=== PATIENT | male | born 1960 | race Caucasian/White ===

== ENCOUNTER 2017-04-19 21:55 | Inpatient (IN) | payer OTHER ==
--- NOTE | ~2017-04-19 | BMI ---
[facility] Nutrition Therapy DATE: 04/21/17 Patient: FRANCISCO TAYLORORTE Physician: AC Address: [address] [place] [address] ROAD Room/Bed: [address] [place] [address], Zip: [place] [address] Admit Date: 04/19/17 Date of : 56 Height: 5 7 Weight: 269 122.4 HIGH BMI NOTE: DX: 56 Y.O. MALE ADMITTED FOR APPENDICITIS ANTHROPOMETRICS: 5'7", WT: 269# (122 KG), BMI: 42 DIET: REGULAR INTERVENTION: 1. REGULAR DIET RECOMMENDATIONS: 1. RECOMMEND TO CHANGE CURRENT DIET ORDER TO CC+HH TO PROMOTE GRADUAL WEIGHT LOSS TOWARDS HEALTHY BMI (19.0-25.0) OR +/-10%IBW RD WILL F/U PER PROTOCOL Respectfully, ARLEEN KUMAR MS, RD, LD Food and Nutritional Services [facility] cc: client file
--- NOTE | ~2017-04-19 | OR ---
Unit #: [id number] #: [id number] Patient: FRANCISCO DWYER [id number] [address] [address] [id number] Mary MR#: [id number] NAME: FRANCISCO DWYER ROOM: 230 Date of Procedure: 04/20/2017 Admission Date: 04/19/2017 Surgeon: Francois Rizzo M.D. : 1960 Attending Physician: Francois Rizzo M.D. OPERATIVE REPORT PREOPERATIVE DIAGNOSIS Appendicitis. POSTOPERATIVE DIAGNOSIS Retrocecal appendicitis with localized perforation. PROCEDURES PERFORMED 1. Diagnostic laparoscopy. 2. Open appendectomy. TECHNICAL STENOGRAPHER None. ANESTHESIA General endotracheal anesthesia. ESTIMATED BLOOD LOSS 50 mL. IV FLUIDS 800 crystalloid. COMPLICATIONS None. INDICATIONS The patient is a 56-year-old gentleman with right lower quadrant abdominal pain. CT scan shows inflammation in the pericecal region. DESCRIPTION OF PROCEDURE The patient was taken to the operating theater and placed in supine position. General anesthesia was induced. The abdomen was prepped and draped. A 5 mm trocar was then placed at the umbilicus without difficulty. The abdomen was insufflated to 15 mmHg with CO2. Under direct vision, I placed a right lower quadrant 10 mm, left lower quadrant 5 mm. General inspection of the abdomen revealed purulent fluid throughout the pelvis. I mobilized the cecum and had difficulty identifying the appendix. This appeared to be retrocecal and going medial. I elected to proceed towards open operation. A right lower quadrant incision was then made. I then transected the rectus abdominis muscle to enter the abdominal cavity. I was able to Unit #: [id number] #: [id number] Patient: FRANCISCO DWYER break up the loculations. There was a localized perforation that I had seen laparoscopically with a fecalith. This was removed. I was able to identify the appendix and deliver the cecum into the wound. I fired a CHHAYA stapler across the base of the appendix as well as the mesoappendix. I then irrigated thoroughly with normal saline. Hemostasis was obtained. I placed the bowel back in anatomical position. I closed it with interrupted #1 Vicryl to both anterior and posterior layers. The galindo were placed in the skin. The patient tolerated the procedure well and sent to the recovery room in good condition. Dictated by... Sadia Weber/dick TD: 04/20/2017 10:32 JOB #: [id number] OPERATIVE REPORT Page 1 of 1 X Francois Rizzo MD X PROCEDURE OPERATIVE NOTE
--- NOTE | ~2017-04-19 | DS ---
Unit #: [id number] #: [id number] Patient: FRANCISCO DYWER [id number] [address] [address] [id number] MR#: [id number] NAME: FRANCISCO DWYER ROOM: 230 Age: 56 Sex: M Admission Date: 04/19/2017 : 1960 Discharge Date: 04/25/2017 Attending Physician: Francois Rizzo M.D. DISCHARGE SUMMARY DISCHARGE DIAGNOSIS Appendicitis with local perforation. PROCEDURE Open appendectomy. HOSPITAL COURSE The patient is a 56-year-old gentleman who presented with appendicitis. He underwent attempted laparoscopic but was found to have a retrocecal appendix with local perforation. His postop course was complicated by an ileus and persistent nausea. He was advanced toward a regular diet, which he tolerated. He defervesced and proceeded to a normal white count. DISPOSITION The patient will be discharged home. CONDITION UPON DISCHARGE Good condition. DISCHARGE DIET He is to follow a regular diet as tolerated. ACTIVITY Activity levels were discussed. FOLLOW-UP He is to follow up with Dr. Rizzo in 10 days. DISCHARGE MEDICATIONS His regular home medications and [place] 7.5 mg q.4 p.r.n. and Phenergan 25 mg p.o. q.4 p.r.n. Dictated by... Sadia Weber/luis angel TD: 04/26/2017 08:34 JOB #: [id number] Unit #: [id number] #: [id number] Patient: FRANCISCO DWYER DISCHARGE SUMMARY Page 1 of 1 X Francois Rizzo MD X DISCHARGE SUMMARY
--- NOTE | ~2017-04-19 | CO ---
Unit #: [id number] #: [id number] Patient: FRANCISCO DWYER [id number] [address] [place], [place] [address] [id number] MR#: [id number] NAME: FRANCISCO DWYER ROOM: 230 Age: 56 Sex: M Admission Date: 04/19/2017 : 1960 Attending Physician: Francois Rizzo M.D. Consultation Date: 04/20/2017 CONSULTATION REPORT BRIEF HISTORY The patient is a 56-year-old gentleman with less than 24 hour history of periumbilical and now right lower quadrant abdominal pain. No fevers. No chills. No emesis. No diarrhea. No history of similar type pain. No fevers. PAST MEDICAL HISTORY None. He has had no previous operations. MEDICATIONS 1. Flexeril. 2. Imitrex. 3. Tenormin. 4. Remeron. ALLERGIES There were no allergies. SOCIAL HISTORY No smoking. No alcohol. FAMILY HISTORY Negative for GI malignancy. REVIEW OF SYSTEMS No cardiopulmonary complaints at this time. Else, 10 systems reviewed and negative. PHYSICAL EXAMINATION GENERAL: He is awake, alert, and appropriate. VITAL SIGNS: Currently afebrile. HEENT: Unremarkable. NECK: Supple. No JVD. Trachea midline. LUNGS: Clear to auscultation. Bilateral breath sounds symmetric. CARDIOVASCULAR: Regular rate and rhythm. ABDOMEN: Soft. It is tender in the right lower quadrant. Point tenderness at McBurney point. No rebound. No masses palpable. No hernias. EXTREMITIES: No clubbing, cyanosis, or edema. DIAGNOSTIC STUDIES LABORATORY RESULTS: CT scan shows inflammation in the periappendix region. ASSESSMENT Unit #: [id number] #: [id number] Patient: FRANCISCO DWYER Appendicitis. PLAN Recommend laparoscopic appendectomy. Dictated by... Sadia Weber/dick TD: 04/20/2017 09:03 JOB #: [id number] CONSULTATION REPORT Page 1 of 1 X Olsofka,Francois N MD X CONSULTATION REPORT
[2017-04-20] MEDS ORDERED: TENORMIN50 MG PO (05:44)
[2017-04-20] MEDS ORDERED: REMERON30 MG PO (05:45)
[2017-04-20] MEDS ORDERED: MELATONIN3 MG PO (05:46)
[2017-04-20] MEDS ORDERED: FLEXERIL10 MG PO (05:46)
[2017-04-20] MEDS ORDERED: FIORICET 50-301 EACH PO (05:47)
[2017-04-20] MEDS ORDERED: IMITREX25 MG PO (05:47)
[2017-04-21 06:38] LABS: HEMATOCRIT 40.5 % (38.0-50.0); HEMOGLOBIN 13.7 gm/dL (13.0-16.0); MEAN CELL VOLUME 93.8 FL (83-96); MEAN CORPUSCULAR HEMOGLOBIN 31.7 PG (28-34); MEAN CORPUSCULAR HGB CONC 33.8 g/dL (30-36); MEAN PLATELET VOLUME 10.8 FL (6.5-11.5); RED BLOOD COUNT 4.32 X10e (3.90-5.60); RED CELL DISTRIBUTION WIDTH 13.2 % (11.0-15.5); WHITE BLOOD COUNT 9.8 X10e3 (4.0-10.5)
[2017-04-21 07:15] LABS: CALCIUM SERUM 8.8 mg/dL (8.4-10.2); GLOM FILT RATE Estimated 82.6 mL/min (>60); POTASSIUM 3.4 mmol/L (3.5-5.1)
[2017-04-23 07:33] LABS: HEMATOCRIT 39.1 % (38.0-50.0); MEAN CELL VOLUME 95.2 FL (83-96); MEAN CORPUSCULAR HEMOGLOBIN 31.7 PG (28-34); MEAN CORPUSCULAR HGB CONC 33.3 g/dL (30-36); RED BLOOD COUNT 4.11 X10e (3.90-5.60); RED CELL DISTRIBUTION WIDTH 13.1 % (11.0-15.5); WHITE BLOOD COUNT 5.8 X10e3 (4.0-10.5)
[2017-04-24 06:17] LABS: HEMATOCRIT 38.3 % (38.0-50.0); MEAN CORPUSCULAR HEMOGLOBIN 31.3 PG (28-34); MEAN PLATELET VOLUME 9.5 FL (6.5-11.5); RED BLOOD COUNT 4.16 X10e (3.90-5.60); WHITE BLOOD COUNT 5.7 X10e3 (4.0-10.5)
[2017-04-25 05:43] LABS: HEMATOCRIT 37.8 % (38.0-50.0); HEMOGLOBIN 12.9 gm/dL (13.0-16.0); MEAN CELL VOLUME 91.8 FL (83-96); MEAN CORPUSCULAR HEMOGLOBIN 31.3 PG (28-34); MEAN CORPUSCULAR HGB CONC 34.2 g/dL (30-36); MEAN PLATELET VOLUME 9.6 FL (6.5-11.5); RED BLOOD COUNT 4.11 X10e (3.90-5.60); WHITE BLOOD COUNT 6.4 X10e3 (4.0-10.5)
[2017-04-25 06:21] LABS: BUN/CREATININE RATIO 15.55; CALCIUM SERUM 8.5 mg/dL (8.4-10.2); CREATININE SERUM 0.9 mg/dL (0.6-1.4); GLOM FILT RATE Estimated 93.8 mL/min (>60); POTASSIUM 3.2 mmol/L (3.5-5.1)
[2017-04-25] MEDS ORDERED: NORCO 7.5-3251 EACH PO (07:55)
[2017-04-25] MEDS ORDERED: PHENERGAN25 M1 PO (07:55)
== END 2017-04-25 09:50 | disposition home or self-care (01) | DRG 339 ==
LOC: C2A 21:55
PROVIDERS: Surgery
PROC: 0DJD4ZZ Inspection of Lower Intestinal Tract, Percutaneous Endoscopic Approach (ICD-10-PCS; 2017-04-20)
PROC: 0DTJ0ZZ Resection of Appendix, Open Approach (ICD-10-PCS; principal; 2017-04-20 07:30)
PROC: 05HD33Z Insertion of Infusion Device into Right Cephalic Vein, Percutaneous Approach (ICD-10-PCS; 2017-04-24)
PROC: B54MZZA Ultrasonography of Right Upper Extremity Veins, Guidance (ICD-10-PCS; 2017-04-24)
DX: K35.3 Acute appendicitis with localized peritonitis (principal); Z68.41 Body mass index [BMI] 40.0-44.9, adult; K56.7 Ileus, unspecified; I10 Essential (primary) hypertension; E66.01 Morbid (severe) obesity due to excess calories; K21.9 Gastro-esophageal reflux disease without esophagitis; F43.10 Post-traumatic stress disorder, unspecified; Z87.891 Personal history of nicotine dependence
CPT/HCPCS: 80048; 82947; 85027; 88304; C9113; J0330; J1100; J1335; J1644; J1885; J2185; J2250; J2270; J2405; J2550; J2710; J2765; J3490